=== PATIENT | female | born 2000 | race Hispanic/Latino ===

== ENCOUNTER 2024-04-14 10:34 | Inpatient (IN) | payer OTHER ==
[~2024-04-14] VITALS: Ht 160 cm; Wt 97.5 kg
[2024-04-15] MEDS ORDERED: OXYTOCIN/DEXTROSE 5% 20 UNITS/100 ML BAG IV SCH (05:30)
[2024-04-15] MEDS ORDERED: LACTATED RINGER'S 1,000 ML IV SCH (06:00)
[2024-04-15] MEDS ORDERED: CALCIUM CARBONATE 500 MG CHEW PO PRN (06:00)
[2024-04-15] MEDS ORDERED: MAGNESIUM HYDROXIDE/AL HYDROX 30 ML CUP PO PRN (06:00)
[2024-04-15 06:01] VITALS: BP 133/77
[2024-04-15 06:08] LABS: HEMATOCRIT 36.3 % (35.0-50.0); HEMOGLOBIN 12.6 g/dL (12.0-18.0); MCH 29.9 (27-36); MCHC 34.6 g/dl (30-36); MCV 86.5 fl (81-99); PLATELET COUNT 146 K/uL (140-440); RDW 22.9 (10.5-15.0)
[2024-04-15 06:24] LABS: AMPHETAMINES, URINE NEGATIVE (NEGATIVE); BARBITURATES, URINE NEGATIVE (NEGATIVE); BENZODIAZEPINE, URINE NEGATIVE (NEGATIVE); BUPRENORPHINE, URINE NEGATIVE (NEGATIVE); CANNABINOID, URINE NEGATIVE (NEGATIVE); COCAINE, URINE NEGATIVE (NEGATIVE); ECSTASY, URINE NEGATIVE (NEGATIVE); FENTANYL, URINE NEGATIVE (NEGATIVE); METHADONE, URINE NEGATIVE (NEGATIVE); OPIATES, URINE NEGATIVE (NEGATIVE); OXYCODONE, URINE NEGATIVE (NEGATIVE); PHENCYCLIDINE, URINE NEGATIVE (NEGATIVE)
[2024-04-15 06:45] LABS: ABO A; ANTIBODY SCREEN NEGATIVE; RH POSITIVE
--- NOTE | 2024-04-15 13:27 | PR ---
[facility] [address], [place] [address] Signed Progress Notes IP Datetime Report Generated by CPN: 04/15/2024 13:27 PROGRESS NOTES: [id number] Impression: Reassuring Heart Rate Procedures: Sterile Vag Exam Plan: Augmentation Other Informed Consents: Pitocin augmentation VITAL SIGNS: [id number] Vital Signs: Reviewed; Within Normal Limits EXAM: [id number] Dilatation: 3.5 Effacement: 80 Station: -2 Contractions: Rare MEMBRANES: [id number] Comments: Pt seen and examined. Doing well. Comfortable. Rare contractions. Cervix unchanged. Discussed previous conversation. Will start low dose pitocin FETUS A: [id number] FHR Baseline: 130 Variability: Moderate 6-25bpm Accelerations: 15X15 Decelerations: None FHR Category: Category I Presentation: Vertex Comments on Fetus A: No evidence of metabolic acidosis FETUS B: [id number] Signing Physician: Antonia Rodriguez DO Copies: ~ *Electronically Signed* 04/15/24 1327 ANTONIA RODRIGUEZ (ANTWAN) DO PATIENT NAME: [facility] PROGRESS NOTE DATE OF : 02 PHYSICIAN: ANTONIA RODRIGUEZ) DO RPT #: [id number] REPORT IS CONFIDENTIAL AND NOT TO BE RELEASED WITHOUT AUTHORIZATION
[2024-04-15] MEDS ORDERED: OXYTOCIN/0.9 % SODIUM CHLORIDE 500 ML IV SCH (13:30)
[2024-04-15] MEDS ORDERED: fentaNYL citrate 100 MCG/2 ML VIAL ONE (13:50)
[2024-04-15] MEDS ORDERED: ROPIVACAINE 0.2% 200 ML BAG ONE (13:50)
[2024-04-15] MEDS ORDERED: ROPIVACAINE 0.2% 200 ML BAG EPIDURAL SCH (14:30)
[2024-04-15] MEDS ORDERED: LACTATED RINGER'S 2,000 ML IV ONE (14:30)
[2024-04-15] MEDS ORDERED: LACTATED RINGER'S 500 ML IV PRN (14:30)
[2024-04-15] MEDS ORDERED: ePHEDrine sulfate 5 MG/ML SYRINGE IV PRN (14:30)
--- NOTE | 2024-04-15 18:02 | PR ---
[facility] [address], [place] [address] Signed Progress Notes IP Datetime Report Generated by CPN: 04/15/2024 18:02 PROGRESS NOTES: [id number] Impression: Normal Progression of Labor; Reassuring Heart Rate Procedures: Sterile Vag Exam Plan: Continue Present Management Informed Consent Obtain: Vaginal Delivery Other Informed Consents: Pitocin augmentation VITAL SIGNS: [id number] Vital Signs: Reviewed; Within Normal Limits EXAM: [id number] Dilatation: 4.5 Effacement: 80 Station: -2 Contractions: q 2-3 min MEMBRANES: [id number] Comments: Pt seen and examined. Doing well. Comfortable w/ contractions following epidural. Pitocin causing regular contractions and cervical change. Will continue to monitor. Reviewed Cat 1 tracing. Pt reassured and all questions answered. FETUS A: [id number] FHR Baseline: 130 Variability: Moderate 6-25bpm Accelerations: 15X15 Decelerations: None FHR Category: Category I Presentation: Vertex Comments on Fetus A: No evidence of metabolic acidosis FETUS B: [id number] Signing Physician: Antonia Rodriguez DO Copies: ~ *Electronically Signed* 04/15/241801 ANTONIA RODRIGUEZ (ANTWAN) DO PATIENT NAME: [facility] PROGRESS NOTE DATE OF : 02 PHYSICIAN: ANTONIA RODRIGUEZ (JD) DO RPT #: [id number] REPORT IS CONFIDENTIAL AND NOT TO BE RELEASED WITHOUT AUTHORIZATION
--- NOTE | 2024-04-15 20:15 | PR ---
[facility] [address] [place], [place] [address] Signed Progress Notes IP Datetime Report Generated by CPN: 04/15/2024 20:15 PROGRESS NOTES: [id number] Impression: Normal Progression of Labor; Reassuring Heart Rate Procedures: Intrauterine Pressure Catheter; Sterile Vag Exam Plan: Continue Present Management; Augmentation Informed Consent Obtain: Vaginal Delivery Other Informed Consents: Pitocin augmentation VITAL SIGNS: [id number] Vital Signs: Reviewed; Within Normal Limits EXAM: [id number] Dilatation: 5.0 Effacement: 80 Station: -2 Contractions: q 2-3 min MEMBRANES: [id number] Comments: Pt seen and examined. Doing well. Comfortable w/ contractions. Minimal cervical change since last exam. Recommended and inserted IUPC after verbal consent obtained. Titrate IUPC as needed to effectualize adequate contractions. All questions answered. FETUS A: [id number] FHR Baseline: 130 Variability: Moderate 6-25bpm Accelerations: 15X15 Decelerations: None FHR Category: Category I Presentation: Vertex Comments on Fetus A: No evidence of metabolic acidosis FETUS B: [id number] Signing Physician: Antonia Rodriguez DO Copies: ~ *Electronically Signed* 04/15/242014 ANTONIA RODRIGUEZ (ANTWAN) DO PATIENT NAME: [facility] PROGRESS NOTE DATE OF : 02 PHYSICIAN: ANTONIA RODRIGUEZ (JD) DO RPT #: [id number] REPORT IS CONFIDENTIAL AND NOT TO BE RELEASED WITHOUT AUTHORIZATION
--- NOTE | 2024-04-15 22:54 | PR ---
[facility] [address] [facility] [place] [address] Signed Progress Notes IP Datetime Report Generated by CPN: 04/15/2024 22:53 PROGRESS NOTES: [id number] Impression: Normal Progression of Labor; Reassuring Heart Rate Procedures: Sterile Vag Exam Plan: Continue Present Management; Anticipate Vaginal Delivery Informed Consent Obtain: Vaginal Delivery Other Informed Consents: Pitocin augmentation VITAL SIGNS: [id number] Vital Signs: Reviewed; Within Normal Limits EXAM: [id number] Dilatation: 9.0 Effacement: 80 Station: -1 Contractions: q 2-3 min MEMBRANES: [id number] Comments: Pt seen and examined. Becoming more uncomfortable w/ contractions. Pt making rapid cervical change and anticipate soon. FETUS A: [id number] FHR Baseline: 130 Variability: Moderate 6-25bpm Accelerations: 15X15 Decelerations: Early FHR Category: Category I Presentation: Vertex Comments on Fetus A: No evidence of metabolic acidosis FETUS B: [id number] Signing Physician: Antonia Rodriguez DO Copies: ~ *Electronically Signed* 04/15/24 0890 ANTONIA RODRIGUEZ (ANTWAN) DO PATIENT NAME: [facility] PROGRESS NOTE DATE OF : 02 PHYSICIAN: ANTONIA RODRIGUEZ) DO RPT #: [id number] REPORT IS CONFIDENTIAL AND NOT TO BE RELEASED WITHOUT AUTHORIZATION
[2024-04-16] MEDS ORDERED: MAGNESIUM HYDROXIDE 30 ML UDC PO PRN (01:00)
[2024-04-16] MEDS ORDERED: CALCIUM CARBONATE 500 MG CHEW PO PRN (01:00)
[2024-04-16] MEDS ORDERED: MAGNESIUM HYDROXIDE/AL HYDROX 30 ML CUP PO PRN (01:00)
[2024-04-16] MEDS ORDERED: ACETAMINOPHEN 325 MG TAB PO PRN (01:00)
[2024-04-16] MEDS ORDERED: HYDROCODONE/ACETA 5/325 TAB PO PRN (01:00)
[2024-04-16] MEDS ORDERED: HYDROCORTISONE ACETATE 25 MG SUPP PR PRN (01:00)
[2024-04-16] MEDS ORDERED: IBUPROFEN 600 MG TAB PO PRN (01:00)
[2024-04-16] MEDS ORDERED: WITCH HAZEL/GLYCERIN 1 EA PAD TOP PRN (01:00)
[2024-04-16] MEDS ORDERED: BENZOCAINE 60 ML AEROSOL TOP PRN (01:00)
[2024-04-16] MEDS ORDERED: OXYTOCIN/0.9 % SODIUM CHLORIDE 500 ML IV SCH (01:00)
[2024-04-16] MEDS ORDERED: OXYCODONE/APAP 5/325 TAB PO PRN (01:00)
[2024-04-16 06:12] LABS: HEMOGLOBIN 11.1 g/dL (12.0-18.0); MCH 29.9 (27-36); MCHC 34.6 g/dl (30-36); MCV 86.6 fl (81-99); PLATELET COUNT 178 K/uL (140-440); RDW 22.4 (10.5-15.0)
[2024-04-16] MEDS ORDERED: SENNOSIDES/DOCUSATE 1 EA TAB PO SCH (09:00)
--- NOTE | 2024-04-17 07:29 | PR ---
[facility] [address] [place], [place] [address] Signed PP Progress Notes Datetime Report Generated by CPN: 04/17/2024 07:29 SUBJECTIVE: [id number] Pain: Within Normal Limits Nausea/Vomiting: Denies Bowel Movement: No Vital Signs: [id number] Vital Signs: Reviewed; Within Normal Limits Cardiovascular: Normal Respiratory: Normal Abdomen/Uterus: Normal Lochia: Normal Vulva/Perineum: Not Done Breasts: Not Done CVA Tenderness: Normal Extremities: Normal Incision: Not Applicable Progress: Normal Exam Comments: Fundus firm U-2 nontender IMPRESSION/PLAN/PROCEDURES: [id number] Impression: Normal Progression Plan: Discharge Progress Notes: Pt seen and examined. Doing well. Ambulating, voiding, and tolerating full diet. Pain and lochia minimal. well. No fevers / chills or other concerns. Desires d/c home. Reviewed d/c meds and instructions. Vasectomy for pp contraception planned. All questions answered. Signing Physician: Antonia Rodriguez DO Copies: ~ *Electronically Signed* 04/17/24 0729 ANTONIA RODRIGUEZ (ANTWAN) DO PATIENT NAME: [facility] PROGRESS NOTE DATE OF : 02 PHYSICIAN: ANTONIA RODRIGUEZ) DO RPT #: [id number] REPORT IS CONFIDENTIAL AND NOT TO BE RELEASED WITHOUT AUTHORIZATION
[2024-04-17 07:37] LABS: ABO A; ANTIBODY SCREEN NEGATIVE; RH POSITIVE
[2024-04-17 07:38] LABS: RHIG STATUS NOT A CANDIDATE
== END 2024-04-17 10:15 | disposition home or self-care (01) | DRG 807 ==
LOC: FBC 04-15 05:17
PROVIDERS: ADMIT Obstetrics & Gynecology; ATTEND Obstetrics & Gynecology
PROC: 10E0XZZ Delivery of Products of Conception, External Approach (ICD-10-PCS; principal; 2024-04-15)
PROC: 10907ZC Drainage of Amniotic Fluid, Therapeutic from Products of Conception, Via Natural or Artificial Opening (ICD-10-PCS; 2024-04-15)
PROC: 3E0R3BZ Introduction of Anesthetic Agent into Spinal Canal, Percutaneous Approach (ICD-10-PCS; 2024-04-15)
PROC: 00HU33Z Insertion of Infusion Device into Spinal Canal, Percutaneous Approach (ICD-10-PCS; 2024-04-15)
DX: O99.02 Anemia complicating childbirth (principal); Z37.0 Single live birth; Z3A.39 39 weeks gestation of pregnancy; Z87.891 Personal history of nicotine dependence; Z79.899 Other long term (current) drug therapy
CPT/HCPCS: 01960; 36415; 80307; 83030; 85027; 85060; 86850; 86900; 86901; A9270; J2790; J2795; J3010; J7121